=== PATIENT | female | born 1985 | race Hispanic/Latino ===

== ENCOUNTER 2023-04-12 21:58 | Inpatient (IN) | payer MEDICAID, OTHER ==
[~2023-04-12] VITALS: Ht 180.3 cm; Wt 113.4 kg
[~2023-04-12 21:58] MED LIST: INSLAN SQ; INSNOV SQ; INSU100C6 SQ; LEVO200T5 PO; PREN1TAB89 PO
[2023-04-12 22:47] LABS: BASOPHILS % (AUTO) 0.4 % (0.0-5.0); EOSINOPHILS % (AUTO) 0.1 % (0.0-8.0); HEMATOCRIT 45.9 % (36-48); LYMPHOCYTES % (AUTO) 6.9 % (21.0-51.0); MEAN CORPUSCULAR HEMOGLOBIN 29.1 pg (27.0-33.0); MEAN CORPUSCULAR HGB CONC 31.8 g/dL (32.0-36.0); MEAN CORPUSCULAR VOLUME 91.6 fL (79-99); NEUTROPHILS % (AUTO) 84.4 % (40.0-77.0); PLATELET COUNT (AUTO) 526 K/uL (130-400); RED BLOOD CELL COUNT(AUTO) 5.01 MIL/uL (4.00-5.50); RED CELL DISTRIBUTION WIDTH 14.2 % (11.0-15.5); WHITE BLOOD COUNT (AUTO) 25.7 K/uL (4.8-10.8)
[2023-04-12 23:12] LABS: ALBUMIN 3.8 g/dL (3.5-5.0); TOTAL PROTEIN, SERUM 8.7 g/dL (6.0-8.3)
[2023-04-12] MEDS ORDERED: 0.9%NACL 1000ML 2,000 ML IV ONE (23:30)
[2023-04-12] MEDS ORDERED: PHARMACY COMMUNICATION MISC SCH (23:45)
[2023-04-13] VITALS (19 sets, daily range): BP systolic 97–148; BP diastolic 47–80
[2023-04-13] MEDS ORDERED: 0.9%NACL 1000ML 3,000 ML IV ONE
[2023-04-13] MEDS ORDERED: INSULIN HUMULIN R 100 UNIT/ML 3ML IV ONE
[2023-04-13] MEDS ORDERED: CEFTRIAXONE 1G VIAL IVPB ONE
[2023-04-13] MEDS ORDERED: CALCIUM GLUC 1GM 1 GM in 0.9%NACL 100ML 100 ML IV ONE ×2
[2023-04-13] MEDS ORDERED: ALBUTEROL 0.083% 2.5 MG/3 ML INH IH SCH
[2023-04-13] MEDS ORDERED: SODIUM BICARB 8.4% 50ML SYRINGE IVP ONE
[2023-04-13 00:03] LABS: HCG,QUALITATIVE URINE NEGATIVE (NEGATIVE)
[2023-04-13 00:10] LABS: APPEARANCE,URINE CLEAR (CLEAR); BILIRUBIN,URINE NEGATIVE (NEGATIVE); COLOR,URINE COLORLESS (YELLOW); GLUCOSE, URINE (UA) >=1000 mg/dL (NEGATIVE); KETONES,URINE 150 mg/dL (NEGATIVE); LEUKOCYTE ESTERASE ,URINE NEGATIVE Leu/uL (NEGATIVE); NITRATE,URINE NEGATIVE (NEGATIVE); PROTEIN,URINE 10 mg/dL (NEGATIVE); UROBILINOGEN,URINE 0.2 mg/dL (0.2-1.0)
[2023-04-13 00:13] LABS: MUCUS,URINE RARE LPF (None Seen); RBC,URINE 0-1 /HPF (0-1)
[2023-04-13 00:35] LABS: ABG BASE EXCESS -20.8 mmol/L (-2.0-3.0); ABG HCO3 5.2 mmol/L (21.0-28.0); ABG OXYGEN SATURATION 97.4 % (95.0-99.0); ABG PCO2 15 mmHg (32-45)
[2023-04-13] MEDS ORDERED: 0.9%NACL 1000ML 1,000 ML IV SCH ×2 (01:30)
[2023-04-13] MEDS ORDERED: ACETAMINOPHEN 325 MG TAB PO PRN ×2 (01:30)
[2023-04-13] MEDS ORDERED: D5W-1/2 NS/20MEQ KCL 1,000 ML IV SCH ×2 (01:30)
[2023-04-13] MEDS ORDERED: MANNITOL 20% IV SCH ×2 (01:30)
[2023-04-13] MEDS ORDERED: INSULIN REGULAR, HUMAN 3ML 100 UNIT in 0.9%NACL 100ML 100 ML IV SCH ×4 (01:30)
[2023-04-13] MEDS ORDERED: ONDANSETRON 4MG INJ IV PRN (01:30)
[2023-04-13] MEDS ORDERED: POTASSIUM CHLORIDE 10MEQ/100ML 100 ML IV PRN ×2 (01:30)
[2023-04-13] MEDS ORDERED: NITROGLYCERIN 0.4 MG SL TAB SL PRN (01:30)
[2023-04-13] MEDS ORDERED: MAGNESIUM 2GM PREMIX 50ML 50 ML IV SCH ×2 (01:30)
[2023-04-13 01:50] LABS: ALBUMIN 3.2 g/dL (3.5-5.0); CREATININE 1.6 mg/dL (0.5-1.5); MAGNESIUM 2.1 mg/dL (1.80-2.40); TOTAL PROTEIN, SERUM 7.3 g/dL (6.0-8.3)
[2023-04-13] MEDS ORDERED: SODIUM BICARB 50MEQ 50ML VIAL 50 ML ONE (01:51)
[2023-04-13 02:17] LABS: BASE EXCESS,VENOUS BLOOD GAS -4.8 (-2.0-3.0); HCO3,VENOUS BLOOD GAS 20.5 (21.0-28.0); PCO2,VENOUS BLOOD GAS 39 (32-45); PH,VENOUS BLOOD GAS 7.338 (7.350-7.450)
[2023-04-13 02:21] LABS: HEMOGLOBIN A1C 12.5 % (4.0-6.0)
[2023-04-13 05:50] LABS: CREATININE 1.1 mg/dL (0.5-1.5); PHOSPHORUS 2.3 mg/dL (2.5-4.9); POTASSIUM 4.7 mmol/L (3.5-5.1)
[2023-04-13 05:58] LABS: BASOPHILS % (AUTO) 0.2 % (0.0-5.0); EOSINOPHILS % (AUTO) 0.2 % (0.0-8.0); HEMATOCRIT 40.4 % (36-48); LYMPHOCYTES % (AUTO) 10.6 % (21.0-51.0); MEAN CORPUSCULAR HEMOGLOBIN 29.4 pg (27.0-33.0); MEAN CORPUSCULAR HGB CONC 32.4 g/dL (32.0-36.0); MEAN CORPUSCULAR VOLUME 90.6 fL (79-99); MONOCYTES % (AUTO) 7.7 % (3.0-13.0); NEUTROPHILS % (AUTO) 79.9 % (40.0-77.0); PLATELET COUNT (AUTO) 345 K/uL (130-400); RED BLOOD CELL COUNT(AUTO) 4.46 MIL/uL (4.00-5.50); WHITE BLOOD COUNT (AUTO) 20.8 K/uL (4.8-10.8)
[2023-04-13 06:49] LABS: ABG OXYGEN SATURATION 30.7 % (95.0-99.0); HCO3,VENOUS BLOOD GAS 14.3 (21.0-28.0); PCO2,VENOUS BLOOD GAS 34 (32-45)
[2023-04-13] MEDS: FAMOTIDINE 20MG VIAL IV SCH ×2 (08:06→21:04)
[2023-04-13] MEDS: ENOXAPARIN SODIUM 40 MG/0.4 ML SYRINGE SQ SCH (08:07)
[2023-04-13 09:20] LABS: CREATININE 1.1 mg/dL (0.5-1.5); POTASSIUM 4.7 mmol/L (3.5-5.1)
[2023-04-13] MEDS ORDERED: VANCOMYCIN PROTOCOL PER PHARMACY IV SCH (09:30)
[2023-04-13] MEDS: CEFEPIME HCL 2 GM VIAL IVPB SCH ×2 (09:42→21:04)
[2023-04-13] MEDS ORDERED: PHARMACY COMMUNICATION MISC SCH (11:00)
[2023-04-13] MEDS ORDERED: LEVO125T95 PO (11:19)
[2023-04-13] MEDS ORDERED: INSU100V37 SQ (11:19)
[2023-04-13] MEDS ORDERED: SEMA2PEN SQ (11:19)
[2023-04-13] MEDS ORDERED: INSU100C6 SQ (11:19)
[2023-04-13] MEDS ORDERED: DEXTROSE 5 %-0.45 % NACL 1,000 ML IV SCH (12:00)
[2023-04-13 13:57] LABS: CREATININE 1.1 mg/dL (0.5-1.5); POTASSIUM 3.8 mmol/L (3.5-5.1)
[2023-04-13] MEDS ORDERED: LACTATED RINGERS 1000ML IV SCH (14:30)
[2023-04-13] MEDS: INSULIN GLARGINE 100 UNITS/ML 10 ML VIAL SQ SCH ×2 (15:53→21:05)
[2023-04-13] MEDS: LACTATED RINGERS 1000ML 1,000 ML IV SCH (15:54)
[2023-04-13] MEDS: INSULIN HUMULIN R 100 UNIT/ML 3ML SQ SCH ×3 (16:30→21:06)
[2023-04-13 17:00] LABS: POTASSIUM 3.7 mmol/L (3.5-5.1)
[2023-04-13] MEDS: VANCOMYCIN 1.5 GM/250 ML BAG 250 ML IV SCH (21:19)
[2023-04-14] MEDS: LACTATED RINGERS 1000ML 1,000 ML IV SCH ×2 (01:30→11:30)
[2023-04-14 03:54] VITALS: BP 132/67
[2023-04-14 06:03] LABS: CREATININE 0.8 mg/dL (0.5-1.5); POTASSIUM 3.2 mmol/L (3.5-5.1)
[2023-04-14 06:27] LABS: MEAN CORPUSCULAR HEMOGLOBIN 29.2 pg (27.0-33.0); MEAN CORPUSCULAR HGB CONC 32.7 g/dL (32.0-36.0); MEAN CORPUSCULAR VOLUME 89.2 fL (79-99); RED BLOOD CELL COUNT(AUTO) 3.7 MIL/uL (4.00-5.50); RED CELL DISTRIBUTION WIDTH 14.2 % (11.0-15.5); WHITE BLOOD COUNT (AUTO) 12.2 K/uL (4.8-10.8)
[2023-04-14] MEDS: INSULIN HUMULIN R 100 UNIT/ML 3ML SQ SCH ×6 (06:59→17:09)
[2023-04-14 08:00] VITALS: BP 128/78
[2023-04-14] MEDS: CEFEPIME HCL 2 GM VIAL IVPB SCH (09:20)
[2023-04-14] MEDS: VANCOMYCIN 1.5 GM/250 ML BAG 250 ML IV SCH (09:21)
[2023-04-14] MEDS: ENOXAPARIN SODIUM 40 MG/0.4 ML SYRINGE SQ SCH (09:21)
[2023-04-14] MEDS: FAMOTIDINE 20MG VIAL IV SCH (09:22)
[2023-04-14 11:53] VITALS: BP 133/78
[2023-04-14 16:00] VITALS: BP 122/58
[2023-04-14] MEDS ORDERED: POTASSIUM CHLORIDE 10% ELIXIR 20 MEQ/15 ML UDCUP PO PRN (18:00)
[2023-04-14] MEDS: KCL 20 MEQ ERTAB PO PRN ×2 (18:07→20:47)
[2023-04-14 19:42] VITALS: BP 125/68
[2023-04-14] MEDS ORDERED: INSU100I3 SQ (20:04)
[2023-04-14] MEDS ORDERED: INSU100V37 SQ (20:04)
== END 2023-04-14 21:25 | disposition home or self-care (01) | DRG 638 ==
LOC: EDH 21:58 → EDHIP 04-13 01:03 → 2CH 04-13 13:26 → 3DH 04-13 23:54
PROVIDERS: ADMIT Internal Medicine; ATTEND Internal Medicine
DX: E10.10 Type 1 diabetes mellitus with ketoacidosis without coma (principal); N17.9 Acute kidney failure, unspecified; R65.10 Systemic inflammatory response syndrome (SIRS) of non-infectious origin without acute organ dysfunction; E03.9 Hypothyroidism, unspecified; E87.5 Hyperkalemia; E86.0 Dehydration; Z88.0 Allergy status to penicillin; Z88.6 Allergy status to analgesic agent; Z79.4 Long term (current) use of insulin; Z91.199 Patient's noncompliance with other medical treatment and regimen due to unspecified reason
CPT/HCPCS: 36415; 36600; 71045; 80048; 80053; 81001; 81025; 82010; 82803; 82947; 82948; 83036; 83605; 83735; 83930; 83935; 84100; 84443; 84484; 85025; 85027; 87040; 93005; 99291; 99292; G0378; J0610; J0692; J1650; J1815; J3480; J3490; J7030